=== PATIENT | male | born 1955 | race Caucasian/White ===

== ENCOUNTER 2018-01-21 05:53 | Day surgery (SDC) | payer BC ==
[2018-01-21] MEDS ORDERED: DIPRIVAN 200 MG/20 ML IV ONE (05:54)
[2018-01-21] MEDS ORDERED: Ketamine HCl 50 MG/ML IV ONE (05:54)
[2018-01-21] MEDS ORDERED: Lactated Ringers 1,000 ML IV SCH (06:30)
[2018-01-21] MEDS ORDERED: Lactated Ringers 1,000 ML IV ONE (06:33)
[2018-01-21 08:40] VITALS: O2SAT 95
[2018-01-21 09:10] VITALS: BP 140/91; PULSE 82
--- NOTE | 2018-01-21 11:35 | OP ---
SURGERY DATE/TIME: 01/21/2018 0745 PREOPERATIVE DIAGNOSIS: History of colon polyp about 11 years ago and recent rectal bleeding. POSTOPERATIVE DIAGNOSIS: Sigmoid diverticulosis otherwise normal colon. PROCEDURE: Colonoscopy. SURGEON: Dr. Whaley. ANESTHESIA: MAC. Medications given by anesthesia department. HISTORY: The patient is a 62 year-old white male patient presenting now for endoscopic evaluation due to the above complaints. He was appraised of the risks of the procedure including the risk of perforation, phlebitis, untoward reaction to medication, bleeding and missed lesions. The patient verbalized his understanding and desired to have the procedure performed. DESCRIPTION OF PROCEDURE: The patient was given the medications by the anesthesia department. He had continuous pulse oximetry, ECG monitoring, intermittent blood pressure monitoring and tidal CO2 monitoring during the examination. He was placed in the left lateral decubitus position. A digital rectal examination was performed and revealed external hemorrhoidal tags, normal anal sphincter tone and no masses and normal prostate. The flexible Olympus pediatric colonoscope was used to intubate the rectum. A view of the colon was developed sequentially to the cecum. Upon insertion and withdrawal there was noted moderate sigmoid diverticula but no stigmata of recent bleeding. There were no mucosal lesions noted throughout the examination otherwise. The scope was removed from the patient who tolerated the procedure well and was sent back to OP recovery in good condition. The prep was noted to be good.
== END 2018-01-21 09:02 | disposition home or self-care (01) ==
LOC: SDC 05:53
PROVIDERS: ATTEND Family Medicine
DX: K62.5 Hemorrhage of anus and rectum (principal); Z86.010 Personal history of colon polyps; K57.30 Diverticulosis of large intestine without perforation or abscess without bleeding
CPT/HCPCS: 94250; J2704